=== PATIENT | male | born 1970 ===

== ENCOUNTER 2025-03-06 00:27 | Emergency (ER) | payer OTHER, MEDICAID ==
[~2025-03-06] VITALS: Ht 165.1 cm; Wt 110.4 kg
--- NOTE | 2025-03-06 01:20 | ED.PDOC ---
History of Present Illness HPI Comments 54-year-old male who came to ER for back pains. Patient with chronic back pain, noted worsening of back pains the past 3 days. No other complaints noted. Denies numbness, weakness, loss of bowel bladder control, saddle anesthesia, foot drop or new injury. 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 03/06/25 Information Source: Patient Mode of Arrival: Ambulatory Severity: Moderate Timing: Days Duration: Intermittent Past Medical History PAST MEDICAL HISTORY: Denies Past Medical History (Other): Chronic back pain Surgical History: Denies all surgeries Family History Family History: Reviewed,noncontributory to illness Social History Smoker: Non-Smoker Alcohol: Denies ETOH Use Drugs: Denies Drug Use Lives In: Home Constitutional: denies: chills, diaphoresis, fatigue, fever, malaise, sweats, weakness, others EENTM: denies: blurred vision, double vision, ear bleeding, ear discharge, ear drainage, ear pain, ear ringing, eye pain, eye redness, hearing loss, mouth pain, mouth swelling, nasal discharge, nose bleeding, nose congestion, nose pain, photophobia, tearing, throat pain, throat swelling, voice changes, others Respiratory: denies: cough, hemoptysis, orthopnea, SOB at rest, shortness of breath, SOB with excertion, stridor, wheezing, others Cardiovascular: denies: chest pain, dizzy spells, diaphoresis, Dyspnea on exertion, edema, irregular heart beat, left arm pain, lightheadedness, palpitati ons, PND, syncope, others Gastrointestinal: denies: abdomen distended, abdominal pain, blood streaked bowels, constipated, diarrhea, dysphagia, difficulty swallowing, hematemesis, melena, nausea, poor appetite, poor fluid intake, rectal bleeding, rectal pain, vomiting, others Genitourinary: denies: burning, dysuria, flank pain, frequency, hematuria, incontinence, penile discharge, penile sore, pain, testicle pain, testicle swelling, urgency, others Neurological: denies: dizziness, fainting, headache, left sided numbness, left sided weakness, numbness, paresthesia, pre-existing deficit, right sided numbness, right sided weakness, seizure, speech problems, tingling, tremors, weakness, others Musculoskeletal: reports: back pain; denies: gout, joint pain, joint swelling, muscle pain, muscle stiffness, neck pain, others Integumetry: denies: bruises, change in color, change in hair/nails, dryness, laceration, lesions, lumps, rash, wounds, others Allergic/Immunocompromised: denies: Difficulty Healing, Frequent Infections, Hives, Itching, others Hematologic/Lymphatic: denies: anemia, blood clots, easy bleeding, easy bruising, swollen glands, others Endocrine: denies: excessive hunger, excessive sweating, excessive thirst, excessive urination, flushing, intolerance to cold, intolerance to heat, unexplained weight gain, unexplained weight loss, others Physical Exam General Appearance: No Apparent Distress, Normal HEENT: Pharynx Normal Neck: Full Range of Motion, Non-Tender Respiratory: Lungs Clear, No Respiratory Distress, Normal Breath Sounds Cardiovascular: No Edema, No JVD, No Murmur, No Gallop, Normal Peripheral Pulses, Regular Rate/Rhythm Breast Exam: Deferred Gastrointestinal: No Organomegaly, Non Tender, No Pulsatile Mass, Normal Bowel Sounds, Soft Genitalia: Deferred Pelvic: Deferred Rectal: Deferred Extremities: No calf tenderness, Normal capillary refill, Normal inspection, Normal range of motion, No pedal edema Musculoskeletal : Location: Right Extremity Location: Back (Moderate tenderness palpated over right lower back musculature. No noted crepitus or step-offs or tenderness along lumbar spine. Strength sensory motion intact positive pedal pulse negative straight leg raise bilateral.) Apperance: Normal Neurologic: Alert, reinforcing steel placer II-XII nml as Tested, No Motor Deficits, Normal Affect, Normal Mood, No Sensory Deficits Cerebellar Function: Normal Reflexes: Normal Skin: Dry, Normal Color, Warm Lymphatic: No Adenopathy Was a procedure done? Was a procedure done?: No Differential Dx Considerations may include: Musculoskeletal pain, lumbosacral strain X-Ray, Labs, Meds, VS Vital Signs Date Time Temp Pulse Resp B/P (MAP) Pulse Ox O2 Delivery O2 Flow Rate FiO2 03/06/25 00:30 97.7 86 18 133/84 97 97.7 Current Medications Medications (Trade) Dose Ordered Sig/Kurt Route Start Time Stop Time Status Last Admin Ketorolac Tromethamine (Toradol Injection) 60 mg ONCE ONCE IM 03/06/25 02:45 03/06/25 02:46 DC 03/06/25 02:55 Dexamethasone Sodium Phosphate (Decadron Injection) 10 mg ONCE ONCE IM 03/06/25 02:45 03/06/25 02:46 DC 03/06/25 02:55 Acetaminophen/ Hydrocodone Bitart (Weston 10/325MG Tab) 1 tab ONCE ONCE PO 03/06/25 02:45 03/06/25 02:46 DC 03/06/25 02:55 X-Ray, Labs, Meds, VS Comment Toradol 60 mg g IM Decadron 10 mg IM, Weston 10 mg p.o.. Reports improvement in pain and function requesting discharge at this time. Script trial of Medrol Dosepak and muscle relaxer advised to take medication as prescribed side effects discussed. Advised to follow up with his PCP in 2-3 days as needed consider further imaging such as MRI or referral to pain management if symptoms persist. Return to the ER for increasing pain numbness, weakness, loss of bowel bladder control, saddle anesthesia, foot drop. Patient indicates understanding agrees with discharge plan of care. Time of 1ST Reevaluation: 01:20 Reevaluation 1ST: Unchanged Time of 2ND Reevaluation: 03:12 Reevaluation 2ND: Improved Patient Education/Counseling: Diagnosis, Treatment, Prognosis, Need For Follow Up Family Education/Counseling: Diagnosis, Treatment, Prognosis, Need For Follow Up, No Family Present SEPSIS Sepsis Screen Date sepsis recognized/suspect: Mar 06, 2025 Time Sepsis recognized/suspect: 003 Recent Procedure: No On Antibiotic Therapy: No Respiratory Rate >20: No Heart Rate >90: No Temp<36 C (96.8 F) or >38.3 C: No SBP <90 or MAP <65 mmHG: No New Acute Mental Status Change: No Is the patient on CPAP, BIPAP,: No Vital Signs Date Time Temp Pulse Resp B/P (MAP) Pulse Ox O2 Delivery O2 Flow Rate FiO2 03/06/25 00:30 97.7 86 18 133/84 97 97.7 Medications Medications Dose Ordered Sig/Kurt Route Start Time Stop Time Status Last Admin Dose Admin Acetaminophen/ Hydrocodone Bitart 1 tab ONCE ONCE PO 03/06/25 02:45 03/06/25 02:46 DC 03/06/25 02:55 Dexamethasone Sodium Phosphate 10 mg ONCE ONCE IM 03/06/25 02:45 03/06/25 02:46 DC 03/06/25 02:55 Ketorolac Tromethamine 60 mg ONCE ONCE IM 03/06/25 02:45 03/06/25 02:46 DC 03/06/25 02:55 Departure 1 Departure Time of Disposition: 03:12 Impression: Primary Impression: Lumbar radiculopathy Additional Impression: Lumbar sprain Qualified Codes: S33.5XXA - Sprain of ligaments of lumbar spine, initial encounter Disposition: HOME / SELF CARE / HOMELESS Condition: Stable e-Prescriptions Tizanidine Hydrochloride (Tizanidine Hcl) 4 Mg Tab 4 MG PO BID PRN for 6 Days, #12 TAB Prov: MAXWELL DE PAZ 03/06/25 Methylprednisolone (Medrol Dosepak) 4 Mg Zacarias 4 MG PO UD for 6 Days, #21 TAB UAD Prov: MAXWELL DE PAZ 03/06/25 Discharged With: Spouse Critical Care Note Critical Care Time?: No Stability Stability form required: No Heart Score Heart Score: Heart Score Response (Comments) Value History N/A 0 EKG N/A 0 Age N/A 0 Risk Factors N/A 0 Troponin N/A 0 Total 0 I personally scribed for ER ([email or web address]) on 03/06/25 at 01:20. Electronically submitted by Armand Hernandez ([email or web address]). ER Mar 06, 2025 01:20 MAXWELL DE PAZ [facility] Mar 06, 2025 02:37
[2025-03-06] MEDS ORDERED: METH4PAK PO (02:52)
[2025-03-06] MEDS ORDERED: TIZA-142 PO (02:52)
[2025-03-06] MEDS: KETOROLAC TROMETH 60MG/2ML VIAL IM ONE (02:55)
[2025-03-06] MEDS: HYDROcodone-ACET 10/325MG TAB PO ONE (02:55)
[2025-03-06 03:19] VITALS: BP 133/84; PULSE 86; RESP 18; TEMP 97.7; O2SAT 97
== END 2025-03-06 03:32 | disposition home or self-care (01) ==
LOC: ER 00:27
DX: S33.5XXA Sprain of ligaments of lumbar spine, initial encounter (principal); M54.16 Radiculopathy, lumbar region; G89.29 Other chronic pain; X58.XXXA Exposure to other specified factors, initial encounter; Y93.89 Activity, other specified; Y92.89 Other specified places as the place of occurrence of the external cause; Y99.8 Other external cause status
CPT/HCPCS: 96372; 99284; J1100; J1885